=== PATIENT | male | born 1945 | race Caucasian/White ===

== ENCOUNTER 2018-12-06 06:50 | Outpatient (CLI) | payer MEDICARE ==
[2018-12-06 11:05] LABS: A1C 5.1 % (<5.7); eGFR (Non-African) > 60
== END 2018-12-06 06:52 ==
LOC: LAB 06:50
PROVIDERS: ATTEND Family Medicine
DX: J12.9 Viral pneumonia, unspecified (principal); I10 Essential (primary) hypertension
CPT/HCPCS: 80053; 83036